=== PATIENT | female | born 1980 | race Hispanic/Latino ===

== ENCOUNTER → 2019-06-21 | Outpatient (CLI) | payer OTHER ==
--- NOTE | 2019-06-21 11:33 | Diagnostic Imaging Report ---
EXAMINATION: CHEST 2 VIEWS INDICATION: Chronic cough COMPARISON: None FINDINGS: LINES/TUBES:None LUNGS:The lungs are well-inflated. No focal consolidation or pulmonary edema. PLEURA:No pleural effusion or pneumothorax. MEDIASTINUM:The cardiomediastinal silhouette appears normal in size and shape. BONES/SOFT TISSUES:No acute osseous injury. ABDOMEN:No free air under the diaphragm. IMPRESSION: No focal pneumonia or pulmonary edema. Signed by: Law Garcia MD on 06/21/2019 11:29 AM
--- NOTE | 2019-06-21 11:38 | Diagnostic Imaging Report ---
Exam: Pelvic ultrasound. History: Vaginal bleeding Comparison: None Findings: Transvaginal sonographic evaluation of the pelvis. The uterus is anteverted in position, measuring 6.9 x 4.4 x 5.7cm. No uterine mass identified. Endometrial stripe thickness is 6 millimeters. The right ovary measures 2.9 x 2.6 x 2.5 cm and contains a 2.4 cm cystic structure, likely follicle in this reproductive age patient. The left ovary measures 3.6 x 3.0 x 3.9 cm and contains a 2.8 cm cystic structure, also likely a follicle. There is a small amount of fluid in the distal endometrial canal and cervical canal. No pelvic free fluid. Impression: Unremarkable pelvic ultrasound. Cystic structures in both ovaries are likely physiologic in this reproductive age patient. Signed by: Law Garcia MD on 06/21/2019 11:34 AM
--- NOTE | 2019-06-21 11:41 | Diagnostic Imaging Report ---
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 Procedure: Barium swallow and upper GI fluoroscopic images obtained with air and barium contrast in a variety of positions. 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 SWALLOW: Grossly unremarkable. ESOPHAGUS: Mucosa is unremarkable. Predominately primary contractions. There is moderate to severe unprovoked gastroesophageal reflux of contrast. STOMACH: Unremarkable mucosal pattern. SMALL BOWEL: Bulb and sweep are normal. Duodenal-jejunal junction is in the normal expected position. Small bowel loops are normal in caliber and distribution. IMPRESSION: Moderate to severe unprovoked gastroesophageal reflux. Otherwise, unremarkable study. Signed by: Law Garcia MD on 06/21/2019 11:38 AM
== END ==
LOC: US 09:40
PROVIDERS: ATTEND Family Medicine
DX: R05 Cough (principal); N93.8 Other specified abnormal uterine and vaginal bleeding; K21.9 Gastro-esophageal reflux disease without esophagitis
CPT/HCPCS: 71046; 74246; 76830